=== PATIENT | female | born 1990 | race Caucasian/White ===

== ENCOUNTER 2021-12-23 20:28 | Emergency (ER) | payer OTHER ==
[~2021-12-23] VITALS: Ht 160 cm; Wt 81.7 kg
[2021-12-23 22:18] LABS: Influenza B, PCR NEGATIVE (NEGATIVE); Resp Syncytial Virus, PCR NEGATIVE (NEGATIVE); SARS-Cov-2 (COVID-19) PCR, MMC NEGATIVE (NEGATIVE)
[2021-12-23 23:38] LABS: Influenza A, PCR POSITIVE (NEGATIVE)
== END 2021-12-23 21:35 | disposition home or self-care (01) ==
LOC: ER 20:28
PROVIDERS: Physician Assistant
DX: J10.1 Influenza due to other identified influenza virus with other respiratory manifestations (principal)
CPT/HCPCS: 0241U

== ENCOUNTER 2022-04-05 21:44 | Emergency (ER) | payer OTHER ==
[~2022-04-05] VITALS: Ht 162.6 cm; Wt 81.7 kg
[~2022-04-05 21:44] MED LIST: GABA300 PO; IBUP800 PO
== END 2022-04-05 23:15 | disposition home or self-care (01) ==
LOC: ER 21:44
DX: J06.9 Acute upper respiratory infection, unspecified (principal); F17.200 Nicotine dependence, unspecified, uncomplicated
CPT/HCPCS: 99281

== ENCOUNTER 2022-05-05 02:21 | Emergency (ER) | payer OTHER ==
[~2022-05-05] VITALS: Ht 160 cm; Wt 81.7 kg
== END 2022-05-05 05:14 | disposition home or self-care (01) ==
LOC: ER 02:21
DX: H92.02 Otalgia, left ear (principal); K08.89 Other specified disorders of teeth and supporting structures
CPT/HCPCS: 99282